=== PATIENT | female | born 1975 | race Caucasian/White ===

== ENCOUNTER 2018-09-05 05:43 | Inpatient (IN) ==
[~2018-09-05 05:43] MED LIST: Famotidine 20 MG/2 ML VIAL IVP PRN; Naloxone 0.4 MG/ML INJ IVP PRN
[2018-09-05] MEDS ORDERED: Ringers Solution, Lactated 1,000 ML IVC SCH (05:45)
[2018-09-05] MEDS ORDERED: Penicillin G Potassium 5,000,000 UNIT in 0.9 % Sodium Chloride Mini Bag 100 ML IVPB ONE (06:00)
[2018-09-05 06:17] LABS: Barbiturate Screen,Urine Negative ng/mL (Cutoff=200)
[2018-09-05 06:21] LABS: Benzodiazepines Screen,Urine Negative ng/mL (Cutoff=300); Cannabinoid Screen,Urine Negative ng/mL (Cutoff = 50); Cocaine Screen,Urine Negative ng/mL (Cutoff= 300); Opiate Screen,Urine Negative ng/mL (Cutoff=300); Phencyclidine Screen,Urine Negative ng/mL (Cutoff=25)
[2018-09-05 07:00] LABS: Basophils # 0.1 K/mcL (0.0-0.2); Basophils % 0.4 %; Eosinophils # 0.3 K/mcL (0.0-0.6); Eosinophils % 2.1 %; Hematocrit 42.9 % (35.3-44.9); Hemoglobin 14.3 g/dL (11.5-15.4); Immature Granulocytes % 0.8 % (0-4); Lymphocytes # 3.9 K/mcL (0.6-4.6); Lymphocytes % 29.3 %; Mean Corpuscular HGB Conc 33.3 g/dL (31.6-35.5); Mean Corpuscular Hemoglobin 28.6 pg (28.0-33.3); Mean Corpuscular Volume 85.8 fL (83.0-100.0); Mean Platelet Volume 11.5 fL (9.4-12.4); Monocytes # 0.4 K/mcL (0.0-1.3); Monocytes % 3.3 %; Neutrophils # 8.4 K/mcL (1.6-8.9); Platelet Count 196 K/mcL (140-400); Red Cell Distribution Width 15.2 % (11.5-14.5); Segmented Neutrophils % 64.1 %
[2018-09-05 07:17] LABS: Amphetamine Screen,Urine Negative ng/mL (Cutoff=1000)
--- NOTE | 2018-09-05 07:27 | OB/GYN History & Physical ---
Date of Encounter: 09/05/18 Time of Encounter: 07:04 Assessment and Plan (1) 35 weeks gestation of Current visit: Yes Status: Acute (2) Tobacco use affecting in third trimester, antepartum Current visit: Yes Status: Acute (3) AMA (advanced maternal age) multigravida 35+ Current visit: Yes Status: Acute Qualifiers: Trimester: third trimester Qualified Code(s): O09.523 - Supervision of elderly multigravida, third trimester (4) PROM (premature rupture of membranes) Current visit: Yes Status: Acute Admit for expectant management PCN for GBS ppx Epidural when requested. Anticipate . Qualifiers: PROM onset of labor timing: onset of labor within 24 hours of rupture PROM gestational age: -third trimester Qualified Code(s): O42.013 - premature rupture of membranes, onset of labor within 24 hours of rupture, third trimester History of Present Illness HPI: Ms. Rodriguez is a 42 year old female presenting at 35 weeks for SROM at midnight for moderate amount clear fluid. She also reports contractions. No other complaints. Good FM. This is complicated by AMA, history of , prior LEEP procedure, and tobacco use. O positive Rubella immune Serologies negative GBS unknown Past Med Surg Social Fam HX - Past Medical History Medical history: other Additional medical history: Pneumonia Psychiatric history: anxiety - Past Surgical History Additional surgical history: Right wrist surgery 2013. Rt Knee Surgery. Cervix laser surgery - Social History Smoking Status: Current every day smoker Packs per day: 1/2 ppd Smokeless Tobacco Status: No Alcohol use: none Drug use: none - Family History Son Age: 17 Family Member Ethnicity: Non- Living Status: Still Living Hx Family Cardiac Disorders: No Hx Family Respiratory Disorders: Yes Hx Family Cancer: No Hx Family GI Disorders: No Hx Family Genitourinary Disorders: No Hx Family Endocrine Disorder: No Hx Family Musculoskeletal Disorders: No Hx Family Neuromuscular Disorders: No Hx Family Neurologic Disorders: No Hx Family HEENT Disorders: No Hx Family Autoimmune Disorders: No Hx Family Reproductive Disorders: No Hx Family Psychosocial Disorders: No Hx Family Medical Disorders: No Obstetrical History - Pregnancies : 5 Para: 3 Term: 2 : 1 Livin Medications and Allergies Vit Calc,Iron,Folic [ Vitamins] 09/05/18 [History] 3 Allergy/AdvReac Type Severity Reaction Status Date / Time sulfamethoxazole Allergy Severe Anaphylaxis Verified 09/05/18 05:42 [From Bactrim] trimethoprim [From Bactrim] Allergy Severe Anaphylaxis Verified 09/05/18 05:42 naproxen Allergy Difficulty Verified 05/31/16 19:15 Breathing tramadol Allergy Anaphylaxis Verified 09/05/18 05:42 Review of System OB All systems PM: reviewed and no additional remarkable complaints except as stated Exam - Constitutional Constitutional: well developed, well nourished, no acute distress - HEENT HEENT: Mucus Membranes Moist - Lungs Respiratory exam: CTAB - Cardiovascular Cardiovascular exam: RRR - Breasts Breast: bilateral: normal - Abdomen Abdomen: Present: gravid, non tender - Extremities Extremities exam: normal inspection - Vulva Vulva: bilateral: normal - Vagina Vagina: Present: normal moisture - Cervix Dilation: 3 Effacement: 80 Station: -1 - Anus/Rectum Anus/Rectum: Present: normal perianal skin Results Result Diagrams: 09/05/18 05:45 Abnormal lab results WBC 13.2 K/mcL (4.3-11.1) H 09/05/18 05:45 RBC 5.00 M/mcL (3.82-4.97) H 09/05/18 05:45 RDW 15.2 % (11.5-14.5) H 09/05/18 05:45 All other labs normal. - VTE Reasons for not Prescribing Prophylaxis: Treatment not Indicated - Low risk for VTE
[2018-09-05] MEDS ORDERED: *HR* FentaNYL (PF) 100 MCG/2 ML VIAL ONE (07:28)
[2018-09-05] MEDS ORDERED: Bupivacaine-MPF 0.25% 10 ML VIAL ONE (07:29)
[2018-09-05] MEDS ORDERED: Lidocaine -MPF 1% 5 ML AMPUL ONE (07:29)
[2018-09-05] MEDS ORDERED: Epidural Premix (fent/bupiv) 110 ML EP ONE (07:47)
[2018-09-05] MEDS ORDERED: Bupivacaine-MPF 0.25% 10 ML VIAL EP ONE (08:30)
[2018-09-05] MEDS ORDERED: *HR* FentaNYL (PF) 100 MCG/2 ML VIAL EP ONE (08:30)
[2018-09-05] MEDS ORDERED: EPHEDrine 50 MG/ML VIAL IVP PRN (08:30)
[2018-09-05] MEDS ORDERED: Epidural Premix (fent/bupiv) 110 ML EP SCH (08:30)
--- NOTE | 2018-09-05 08:33 | Anesthesia Evaluation PreOp ---
Date of Encounter: 09/05/18 Time of Encounter: 08:31 - Past History Planned Operation: allison Cardiac History: Denies any Significant Hx Pulmonary History: Smoker (1/2 pack per day) PRICING ASSOCIATE History: Denies Any Significant HX Other Medical History: Denies Any Significant HX Anesthesia History: No Prior Anesthetic Complications, Past Anesthesia : Yes (35wks, ) Alcohol Use: none Drug use: none Medications and Allergies Vit Calc,Iron,Folic [ Vitamins] 09/05/18 [History] 3 Allergy/AdvReac Type Severity Reaction Status Date / Time sulfamethoxazole Allergy Severe Anaphylaxis Verified 09/05/18 05:42 [From Bactrim] trimethoprim [From Bactrim] Allergy Severe Anaphylaxis Verified 09/05/18 05:42 naproxen Allergy Difficulty Verified 05/31/16 19:15 Breathing tramadol Allergy Anaphylaxis Verified 09/05/18 05:42 - Meds/Allergy Pre-op Review Medications Reviewed: Yes Allergies Reviewed: Yes Beta Blockers on Current Med List: No Anesthesia Results - Labs 09/05/18 05:45 Anesthesia Exam O2 Sat Height 1.7 m Weight 117.5 kg Height: 67 Weight: 259 - HEENT Pupil (Motor): Pupils equal Mallampati: I Teeth: Edentulous Oral Opening: Greater than 3 - PRICING ASSOCIATE LOC: Oriented PRICING ASSOCIATE Motor: Normal RUE, Normal LUE, Normal RLE, Normal LLE, Normal Face PRICING ASSOCIATE Sensory: Normal: RUE, LUE, RLE, LLE, Face - Cardiac Rhythm: Regular Murmur: None JVD: No Carotid Bruit: No - Pulmonary Breath Sounds: bilateral Clear Respiratory Effort: Symmetrical Anesthesia Assess/Plan ASA Score: 2 Modified Toby Scale for Level of Consciousness: Cooperative, oriented, and tranquil Anesthetic Plan: Regional Monitoring Plan: Standard Monitors
--- NOTE | 2018-09-05 08:35 | Anesthesia Procedures ---
Date of Encounter: 09/05/18 Time of Encounter: 07:15 Procedures: Anesthesia - Epidural/Spinal Patient ID/Chart reviewed: Yes Patient examined: Yes OB Eval: Gestational age: 35 OB Eval: : 5 OB Eval: Hx Para: 3 OB Eval: Contractions: Non-stressed pattern Consent Obtained: Yes Supplemental Oxygen: None/Room Air Site Prep: Aseptic Technique Patient position: upright Local Anesthetic: Lidocaine 1% Amount of Local Anesthetic used: 3 Touhy Needle Gauge: 18 Touhy Needle Depth (cm): 6 Catheter Depth at Skin (cm): 12 Test Dose (1.5% Lido + Epi): Volume given (mls): 3 Test Dose Result: Negative Loading Dose: 0.25% Marcaine (mls): 6 Loading Dose: Fentanyl (mcg): 100 Loading Dose Administered: Thru Touhy Needle Infusion Med: 0.125% Bupivacaine w/ 2 mcg/ml Fentanyl Infusion Rate (mls/hr): [address]: Tegaderm Interspace Used: L3-L4 Loss of Resistance (MARINA): Yes Blood: No CSF: No Paresthesia: No
[2018-09-05] MEDS ORDERED: Oxytocin 20 units/ LR 1000 mL 20 UNIT/1,000 ML BAG IVC SCH ×2 (10:00→17:20)
[2018-09-05] MEDS ORDERED: Penicillin G Potassium 2,500,000 UNIT in 0.9 % Sodium Chloride 100 ML IVPB SCH (10:00)
--- NOTE | 2018-09-05 10:06 | OB Labor Progress Note ---
Date of Encounter: 09/05/18 Time of Encounter: 09:56 Labor Progress Note - Subjective Subjective: Patient comfortable with epidural - Cervix Cervix: 5/80/-1 - Heart Tones Heart Tones: Baseline 130 Minimal to moderate variability No accelerations No decelerations FHR category II - [place]: Contractions undetectable - Interventions Interventions: SVE IUPC - Plan Plan: Continue expectant management Start Pitocin when available Bolus for low variability Continue GBS prophylaxis Anticipate vaginal delivery
[2018-09-05] MEDS ORDERED: 0.9 % Sodium Chloride 1,000 ML ONE (13:06)
--- NOTE | 2018-09-05 13:11 | OB Labor Progress Note ---
Date of Encounter: 09/05/18 Time of Encounter: 13:08 Labor Progress Note - Subjective Subjective: Patient remained comfortable with epidural. - Cervix Cervix: 6/80/-1 - Heart Tones Heart Tones: Baseline 150 Moderate variability Accelerations present Frequent variable decelerations FHR category II - [place] Karns: IUPC - MVU adequate and contractions adequate - Interventions Interventions: SVE Position change to peanut ball - Plan Plan: Continue expectant management Frequent position changes with peanut ball Amnioinfusion if variables continue Anticipate
--- NOTE | 2018-09-05 15:50 | OB/GYN Procedure Note ---
Delivery - Delivery Date: 09/05/18 Provider: Maddie Maxwell Intrapartum events: none Delivery induction: none Delivery augmentation: pitocin Delivery monitor: external FHT, external uterine, internal FHT, internal uterine Anesthesia: epidural Quantitated Blood Loss: 75 - (s) A Delivery Date: 09/05/18 Delivery Time: 15:30 Presentation: vertex Position: KRISTIE Route of delivery: Gender: Male Viability: Viable Pounds: 4 Ounces: 4 Weight Gram: 1.925 kg at 1 minute: 8 at 5 mins: 9 Shoulder Dystocia: not encountered Specimens collected: cord blood Placenta: spontaneous Cord: 3 umbilical vessels - Repair Episiotomy: none Laceration Description: None - Complications Delivery complications: none Delivery comments: This is a 42-year-old G5 now [id number] who was admitted for spontaneous rupture of membranes. She progressed with Pitocin augmentation to the second stage of labor. She pushed for about 10 minutes. She delivered a viable male infant, "KRISTIE Griggs over an intact perineum. The was placed on the maternal abdomen where the mouth and nares were bulb suctioned by nursery. No nuchal cord was identified. No shoulder dystocia was encountered. The umbilical cord was allowed to completely stop pulsating and then was double clamped by outsole cutter machine and cut by FOB. scores were 8 at 1 minute and 9 at 5 minutes. The infant weighed 4 lbs. 4 oz. (1925 g). The placenta delivered (Mejía) spontaneously, intact, with a three-vessel cord. Inspection revealed no perineal, sidewall, or cervical lacerations. The uterus was firm with no active bleeding. EBL was 75 mL. Placenta and umbilical artery blood gases were not sent. There were no complications during the procedure. Mom and baby are cuddling following delivery. - Disposition Mom disposition: stable in LDR disposition: stable in LDR
[2018-09-05] MEDS ORDERED: Ibuprofen 600 MG TABLET PO PRN (17:20)
[2018-09-05] MEDS ORDERED: Benzocaine/Menthol 56 GM AEROSOL SPRAY TP PRN (17:20)
[2018-09-05] MEDS ORDERED: Acetaminophen 325 MG TABLET PO PRN (17:20)
[2018-09-06 08:24] VITALS: BP 101/74
[2018-09-06] MEDS ORDERED: Prenatal Vit/FA 1 EACH TABLET PO SCH (09:00)
--- NOTE | 2018-09-06 10:13 | Discharge Summary ---
Date of Encounter: 09/06/18 Time of Encounter: 10:11 - Discharge Diagnosis (1) Vaginal delivery Priority: Primary Status: Acute Comments: Stable PPD#1, pain well managed on po pain medication, tolerates regular diet, bottle feeding, desires discharge. - Discharge Medications Prescriptions: Ibuprofen [Motrin] 600 mg PO Q6HR PRN #60 tablet PRN Reason: Cramping Docusate [Colace] 100 mg PO BID #30 capsule Home Medications: Vit Calc,Iron,Folic [ Vitamins] 09/05/18 [History] Acetaminophen [Tylenol] 650 mg PO Q6HR PRN tablet 09/06/18 [Rx] Benzocaine/Menthol [place] [Dermoplast Kimmell] 1 appl TP QID PRN aerosol 09/06/18 [Rx] Docusate [Colace] 100 mg PO BID #30 capsule 09/06/18 [Rx] Ibuprofen [Motrin] 600 mg PO Q6HR PRN #60 tablet 09/06/18 [Rx] Vit/FA 1 each PO DAILY tablet 09/06/18 [Rx] Allergies/Adverse Reactions: 3 Allergy/AdvReac Type Severity Reaction Status Date / Time sulfamethoxazole Allergy Severe Anaphylaxis Verified 09/05/18 05:42 [From Bactrim] trimethoprim [From Bactrim] Allergy Severe Anaphylaxis Verified 09/05/18 05:42 naproxen Allergy Difficulty Verified 05/31/16 19:15 Breathing tramadol Allergy Anaphylaxis Verified 09/05/18 05:42 Data Procedures and tests throughout hospitalization: Laboratory Tests 09/05/18 09/05/18 09/05/18 05:45 05:45 08:02 WBC 13.2 H RBC 5.00 H Hgb 14.3 Hct 42.9 MCV 85.8 MCH 28.6 MCHC 33.3 RDW 15.2 H Plt Count 196 MPV 11.5 Immature Gran % 0.8 Seg Neutrophils % 64.1 Lymphocytes % 29.3 Monocytes % 3.3 Eosinophils % 2.1 Basophils % 0.4 Neutrophils # 8.4 Lymphocytes # 3.9 Monocytes # 0.4 Eosinophils # 0.3 Basophils # 0.1 Urine Opiates Screen Negative Ur Barbiturates Screen Negative Ur Phencyclidine Scrn Negative Ur Amphetamines Screen Negative U Benzodiazepines Scrn Negative Urine Cocaine Screen Negative U Marijuana (THC) Screen Negative Ur Drug Screen Interp See Below Hep Bs Antigen Nonreactive Date of admission: 09/05/18 05:43 Primary care physician: PCP NONE Consults: 09/05/18 17:20 Consult to Correction Officer Head [CONS] Routine Comment: Vaginal delivery, consult needed Discharging clinician: Fior Sanchez Anticipated date of discharge: 09/06/18 - Patient Status Disposition: Home, Self-Care Condition: Good Functional capacity at discharge: independent ambulation Overall status at discharge: patient is back to baseline - Discharge Instructions Follow Up With: NONE,PCP [Primary Care Provider] - Faustino Gallardo MD [Partnered Physician] - - Diet and Activity Activity: resume usual activities as tolerated Diet: regular diet Hospital Course Reason for admission: active labor Delivery: Episiotomy: none Laceration: none Other procedures: none complications: none Discharge diagnosis: IUP at term delivered baby: male Hospital course: Delivery - Delivery Date: 09/05/18 Provider: Maddie Maxwell Intrapartum events: none Delivery induction: none Delivery augmentation: pitocin Delivery monitor: external FHT, external uterine, internal FHT, internal uterine Anesthesia: epidural Quantitated Blood Loss: 75 - (s) Infant A Delivery Date: 09/05/18 Infant Delivery Time: 15:30 Presentation: vertex Position: KRISTIE Route of delivery: Gender: Male Viability: Viable Pounds: 4 Ounces: 4 Weight Gram: 1.925 kg at 1 minute: 8 at 5 mins: 9 Shoulder Dystocia: not encountered Specimens collected: cord blood Placenta: spontaneous Cord: 3 umbilical vessels - Repair Episiotomy: none Laceration Description: None - Complications Delivery complications: none Delivery comments: This is a 42-year-old G5 now [id number] who was admitted for spontaneous rupture of membranes. She progressed with Pitocin augmentation to the second stage of labor. She pushed for about 10 minutes. She delivered a viable male infant, "Teto"ETHANA over an intact perineum. The infant was placed on the maternal abdomen where the mouth and nares were bulb suctioned by nursery. No nuchal cord was identified. No shoulder dystocia was encountered. The umbilical cord was allowed to completely stop pulsating and then was double clamped by load dispatcher and cut by FOB. scores were 8 at 1 minute and 9 at 5 minutes. The weighed 4 lbs. 4 oz. (1925 g). The placenta delivered (Mejía) spontaneously, intact, with a three-vessel cord. Inspection revealed no perineal, sidewall, or cervical lacerations. The uterus was firm with no active bleeding. EBL was 75 mL. Placenta and umbilical artery blood gases were not sent. There were no complications during the procedure. Mom and baby are cuddling following delivery. - Disposition Mom disposition: stable in PP and appropriate for discharge Time Attestation: Total time spent providing and/or coordinating discharge services: Time Spent: Less than 30 minutes Exam - Constitutional Vitals: Temp Pulse Resp BP Pulse Ox 97.5 F L 97 12 101/74 98 09/06/18 08:00 09/06/18 08:00 09/06/18 08:00 09/06/18 08:00 09/06/18 08:00 General appearance IM: A&O X 3 - Respiratory Respiratory exam: Present: CTAB - Cardiovascular Cardiovascular exam IM: Present: RRR - GI/Abdominal GI/Abdominal exam IM: soft - Uterine Tone: Firm Uterus Position: At Umbilicus - Extremities Exam Extremities exam IM: Present: normal capillary refill, normal inspection - Neurological Exam Neurological exam: normal gait, oriented X3 - Psychiatric Additional comments: Reports good mood
== END 2018-09-06 14:58 | disposition home or self-care (01) | DRG 560 ==
LOC: 1NENULAB → 1NENUOBS 19:00
PROVIDERS: ADMIT Obstetrics & Gynecology; ATTEND Obstetrics & Gynecology